=== PATIENT | male | born 1975 | race Caucasian/White ===

== ENCOUNTER 2016-11-26 08:37 | Emergency (ER) | payer OTHER ==
[~2016-11-26] VITALS: Ht 172.7 cm; Wt 79.4 kg
--- NOTE | 2016-11-26 08:41 | NUR ---
bbra and lapd, found in car sleeping, complaint for pain on hands due to infection and noncompliant with abx. pt states use meth yesterday. Placed on monitor. VSS. Awaiting md order.
--- NOTE | 2016-11-26 08:50 | NUR ---
Dr Cooley at bedside for eval
--- NOTE | 2016-11-26 08:55 | NUR ---
ekg in progress
[2016-11-26] MEDS ORDERED: PIPERACILLIN /TAZOBACTAM 3.375 G in IV D5W 50 ML IV ONE (09:00)
[2016-11-26] MEDS ORDERED: VANCOMYCIN 1 GM in IV D5W 250 ML IV ONE (09:00)
--- NOTE | 2016-11-26 09:01 | NUR ---
PER DR MÉNDEZ WILL START PICC LINE
--- NOTE | 2016-11-26 09:47 | NUR ---
PT REFUSED PICC LINE/ MIDLINE INSERTION. DR JORGE CHAVEZ
--- NOTE | 2016-11-26 10:00 | NUR ---
Patient does not wish to proceed with medical care recommended by Dr. Cooley. Patient given information related to possible complications, up to and including , which could occur as a result of leaving the hospital at this time. Patient verbalizes understanding of risks involved due to leaving against medical advice. Patient has signed AMA form. [employer] officer Messi (ID# [id number]) [place] is aware that patient refused IV and medical treatment.
[2016-11-26 10:43] VITALS: BP 148/82
== END 2016-11-26 10:43 | disposition left against medical advice (07) ==
LOC: ER 08:39
DX: L03.113 Cellulitis of right upper limb (principal); F19.10 Other psychoactive substance abuse, uncomplicated
CPT/HCPCS: 93005; 99283; A4606; J2543; J3370; J7060 ×2; Z7610; A6402